=== PATIENT | female | born 1995 | race African-American/Black ===

== ENCOUNTER 2017-09-27 01:14 | Emergency (ER) | payer SELFPAY ==
[2017-09-27 01:44] VITALS: BMI 45.1
--- NOTE | 2017-09-27 02:25 | DR.GENAD ---
HPI - PCP Primary Care Physician: DR. Skye TIMMONS - Complaint/Symptoms Chief Complaint Doctors Comments: Patient admits to having nausea most of the day with urinary frequency. She denies dysuria. Chief Complaint:: NAUSEA AND VOMITING ALL DAY TODAY. FEELING WEAK. Self Treatment fo Chief Complaint: NONE - Source History Provided: Patient - Mode of Arrival Mode of Arrival: Ambulatory - Timing Onset of Chief Complaint: 09/26/17 PMH - PMH Past Medical History: No Past Surgical History: Yes Past Surgical History Comment: INTESTINES WAS OUTSIDE BODY AT SURGICAL REPAIR DONE - Family History History of Family Medical Conditions: Yes Family Medical History: Diabetes Mellitus, Cancer, Hypertension - Social History Does patient currently use any type of tobacco product: Yes Have you used tobacco products in the last 12 months: Yes Type of Tobacco Use: Cigars How many years tobacco product used: 1 Does any household member use tobacco: No Alcohol Use: Rarely Do you use any recreational Drugs:: No Lives With: Family Lives Where: Home - infectious screening In the last 2 months have you had wt loss of >10#?: NO Have you had fever, night sweats or hemotysis?: No Have you traveled outside the country in the last 6 months?: No Isolation: Standard ROS - Review of Systems Constitutional: No Symptoms Reported Eyes: No Symptoms Reported ENTM: No Symptoms Reported Respiratoy: No Symptoms Reported Cardiovascular: No Symptoms Reported Gastrointestinal/Abdominal: No Symptoms Reported Genitourinary: No Symptoms Reported Neurological: No Symptoms Reported Musculoskeletal: No Symptoms Reported Integumentary: No Symptoms Reported Hematologic/Lymphatic: No Symptoms Reported Endocrine: No Symptoms Reported Psychiatric: No Symptoms Reported All Other Systems: Reviewed and Negative PE - Vital Signs Vitals: Temperature 98.6 F Pulse Rate 85 Respiratory Rate 16 Blood Pressure 145/76 O2 Sat by Pulse Oximetry 99 - General Limitations: No Limitations General Appearance: Alert, In No Apparent Distress - Head Head Exam: Normal Inspection, Atraumatic - Eyes Eye exam: Normal Appearance, PERRL, EOMI - ENT ENT Exam: Normal Exam External Ear Exam: Normal External Inspection TM/Canal Exam: Bilateral Normal Nose Exam: Normal Nose Exam, Sinus Tenderness Mouth Exam: Normal Inspection Throat Exam: Normal Inspection - Neck Neck Exam: Normal Inspection - Chest Chest Inspection: Normal Inspection - Respiratory Respiratory Exam: Normal Lung Sounds Bilat Respiratory Exam: Bilateral Clear to Auscultation - Cardiovascular Cardiovascular Exam: Regular Rate - Abdominal Exam Abdominal Exam: Normal Inspection Abdominal Tenderness: negative: RUQ, RLQ, LUQ, LLQ, Epigastrium, Suprapubic, Diffuse, Mild, Moderate, Severe, Other - Extremities Extremities Exam: Normal Inspection, Full ROM - Back Back Exam: Normal Inspection, Full ROM - Neurologic Neurological Exam: Alert, Oriented X3, CN II-XII Intact - Psychiatric Psychiatric Exam: Normal Affect, Normal Mood - Skin Skin Exam: Warm, Dry, Intact Course - Reevaluation 1st: Unchanged ROR - Labs Reviewed Laboratory Results Reviewed?: Yes (UA: negative) Result Diagrams: 09/27/17 02:43 09/27/17 02:43 Laboratory: WBC 5.3 X10^3/uL (3.6-10.0) 09/27/17 02:43 RBC 4.52 X10^6/uL (3.5-5.4) 09/27/17 02:43 Hgb 11.8 g/dL (12.0-16.0) L 09/27/17 02:43 Hct 35.1 % (36.0-47.0) L 09/27/17 02:43 MCV 77.7 fL (80.0-100.0) L 09/27/17 02:43 MCH 26.0 pg (27.0-34.0) L 09/27/17 02:43 MCHC 33.5 g/dL (33.0-35.0) 09/27/17 02:43 RDW 17.0 % (11.6-16.5) H 09/27/17 02:43 Plt Count 217 X10^3/uL (150.0-450.0) 09/27/17 02:43 MPV 9.6 fL (7.4-11.0) 09/27/17 02:43 Neut % 42.7 % (42.0-75.0) 09/27/17 02:43 Lymph % 46.9 % (21.0-51.0) 09/27/17 02:43 Al[place]alfa % 7.4 % (0.0-13.0) 09/27/17 02:43 Eos % 2.4 % (0.9-2.9) 09/27/17 02:43 Baso % 0.6 % (0.2-1.0) 09/27/17 02:43 Neut # 2.3 x10^3/uL (2.2-4.8) 09/27/17 02:43 Lymph # 2.5 X10^3/uL (1.3-2.9) 09/27/17 02:43 [place]a # 0.4 x10^3/uL (0.3-0.8) 09/27/17 02:43 Eos # 0.1 x10^3/uL (0.0-0.2) 09/27/17 02:43 Baso # 0.0 X10^3/uL (0.0-0.1) 09/27/17 02:43 Absolute Nucleated RBC 0.0 /100WBC 09/27/17 02:43 Sodium 142 mmol/L (136-145) 09/27/17 02:43 Corrected Sodium TNP 09/27/17 02:43 Potassium 3.9 mmol/L (3.5-5.1) 09/27/17 02:43 Chloride 108 mmol/L (98-107) H 09/27/17 02:43 Carbon Dioxide 28.6 mmol/L (21-32) 09/27/17 02:43 BUN 6 mg/dL (7-18) L 09/27/17 02:43 Creatinine 1.19 mg/dL (0.55-1.02) H 09/27/17 02:43 Est GFR (MDRD) Af Amer > 60 (>60) 09/27/17 02:43 Est GFR (MDRD) Non-Af 59 (>60) 09/27/17 02:43 Glucose 90 mg/dL (65-99) 09/27/17 02:43 Calcium 8.3 mg/dL (8.5-10.1) L 09/27/17 02:43 Specimen Type Clean catch urine 09/27/17 02:43 Urine Color Yellow (YELLOW) 09/27/17 02:43 Urine Appearance Clear (CLEAR) 09/27/17 02:43 Urine pH 7.0 (5.0 - 8.0) 09/27/17 02:43 Ur Specific [place] 1.010 (1.000-1.030) 09/27/17 02:43 Urine Protein 2+ (NEGATIVE) 09/27/17 02:43 Urine Glucose (UA) Negative (NEGATIVE) 09/27/17 02:43 Urine Ketones Negative (NEGATIVE) 09/27/17 02:43 Urine Occult Blood Negative (NEGATIVE) 09/27/17 02:43 Urine Nitrite Negative (NEGATIVE) 09/27/17 02:43 Urine Bilirubin Negative (NEGATIVE) 09/27/17 02:43 Urine Urobilinogen 1+ (NORMAL) 09/27/17 02:43 Ur Leukocyte Esterase Negative (NEGATIVE) 09/27/17 02:43 Urine RBC 0-3 /HPF (NEGATIVE) 09/27/17 02:43 Urine WBC 0-3 /HPF (NEGATIVE) 09/27/17 02:43 Ur Squamous Epith Cells Numerous /HPF (NEGATIVE) 09/27/17 02:43 Urine Bacteria Trace /HPF (NEGATIVE) 09/27/17 02:43 Ur Culture Indicated? No/not indicated 09/27/17 02:43 - Diagnosis Discharge Problem: Nausea - Discharge Plan Condition: Stable - Follow ups/Referrals Follow ups/Referrals: NICOLÁS TIMMONS [Primary Care Provider] - 3 days - Instructions
[2017-09-27] MEDS ORDERED: ZOFRAN SYRUP 4 MG UDC PO ONE (02:30)
[2017-09-27] MEDS ORDERED: ZOFRAN SYRUP 4 MG UDC ONE (02:41)
[2017-09-27 02:53] LABS: BASOPHILS % (AUTO) 0.6 % (0.2-1.0); EOSINOPHILS # (AUTO) 0.1 x10^3/uL (0.0-0.2); EOSINOPHILS % (AUTO) 2.4 % (0.9-2.9); HEMATOCRIT 35.1 % (36.0-47.0); HEMOGLOBIN 11.8 g/dL (12.0-16.0); LYMPHOCYTES # (AUTO) 2.5 X10^3/uL (1.3-2.9); LYMPHOCYTES % (AUTO) 46.9 % (21.0-51.0); MEAN CORPUSCULAR HGB CONC 33.5 g/dL (33.0-35.0); MEAN CORPUSCULAR VOLUME 77.7 fL (80.0-100.0); MEAN PLATELET VOLUME 9.6 fL (7.4-11.0); MONOCYTES # (AUTO) 0.4 x10^3/uL (0.3-0.8); MONOCYTES % (AUTO) 7.4 % (0.0-13.0); NEUTROPHILS # (AUTO) 2.3 x10^3/uL (2.2-4.8); NEUTROPHILS % (AUTO) 42.7 % (42.0-75.0); PLATELET COUNT 217 X10^3/uL (150.0-450.0); RED BLOOD COUNT 4.52 X10^6/uL (3.5-5.4); WHITE BLOOD COUNT 5.3 X10^3/uL (3.6-10.0)
[2017-09-27 03:01] LABS: BLOOD UREA NITROGEN 6 mg/dL (7-18); CALCIUM 8.3 mg/dL (8.5-10.1); CARBON DIOXIDE 28.6 mmol/L (21-32); CHLORIDE 108 mmol/L (98-107); CREATININE 1.19 mg/dL (0.55-1.02); SODIUM 142 mmol/L (136-145); eGFR BLACK RACES > 60 (>60); eGFR NON BLACK RACES 59 (>60)
[2017-09-27 03:02] LABS: BILIRUBIN,URINE NEGATIVE (NEGATIVE); BLOOD/HEMOGLOBIN,URINE NEGATIVE (NEGATIVE); GLUCOSE, URINE NEGATIVE (NEGATIVE); KETONES,URINE NEGATIVE (NEGATIVE); LEUKOCYTE ESTERASE ,URINE NEGATIVE (NEGATIVE); NITRITES,URINE NEGATIVE (NEGATIVE); PROTEIN,URINE 2+ (NEGATIVE); UROBILINOGEN,URINE 1+ (NORMAL)
[2017-09-27 03:49] LABS: APPEARANCE,URINE CLEAR (CLEAR); COLOR,URINE YELLOW (YELLOW); RBC,URINE 0-3 /HPF (NEGATIVE)
[2017-09-27 03:50] LABS: BACTERIA,URINE TRACE /HPF (NEGATIVE); SQUAMOUS EPITHELIAL CELL,UR NUMEROUS /HPF (NEGATIVE)
[2017-09-27 04:19] VITALS: BP 156/89
== END 2017-09-27 04:10 | disposition home or self-care (01) ==
LOC: ER 01:14
DX: R11.0 Nausea (principal)
CPT/HCPCS: 36415; 80048; 81001; 85025; 99282; Q0162